=== PATIENT | male | born 1965 | race Caucasian/White ===

== ENCOUNTER 2017-02-21 13:45 | Emergency (ER) | payer OTHER ==
[~2017-02-21] VITALS: Ht 182.9 cm; Wt 65.0 kg
[~2017-02-21 13:45] MED LIST: AUGM875T PO; HYDR-3533 PO
[2017-02-21 13:46] VITALS: BP 185/94; PULSE 75; RESP 15; TEMP 98.2; O2SAT 100
--- NOTE | 2017-02-21 14:13 | PD ---
HPI Chief Complaint: Pain: Acute or Chronic Time Seen by Provider: 14:13 Travel History International Travel<30 days: No Contact w/Intl Traveler<30days: No Traveled to known affect area: No History of Present Illness HPI 51-year-old male presents emergency Department with complaint of swelling and pain to the tip of his left fifth finger 4-5 days. Denies paresthesias, loss of sensation, decreased range of motion to the affected finger. Denies fever, chills, nausea, vomiting. Has been taking Tylenol for the pain with some relief. No known allergies. No other medical complaints. No other modifying factors or associated signs and symptoms. PFSH Past Medical History Heart Rhythm Problems: No Cardiac Catheterization: No Cardiovascular Problems: Yes High Cholesterol: No Congestive Heart Failure: No Diabetes: No Hypertension: Yes Past Surgical History Coronary Artery Bypass Graft: No Thoracic Surgery: Yes (PARTIAL RIGHT LOBECTOMY) Other Surgery: Yes (RIGHT LUNG VIRAL INFECTION WITH PARTIAL LOBECTOMY AT 19 YO) Social History Alcohol Use: No Tobacco Use: Yes (1 PPD. STOPPED 5 DAYS AGO. ) Substance Use: No Allergies-Medications (Allergen,Severity, Reaction): Coded Allergies: No Known Allergies (Verified , 08/11/14) Reported Meds & Prescriptions Reported Meds & Active Scripts Active Ibuprofen 800 Mg Tab 800 Mg PO Q6HR PRN Bactrim DS (Sulfamethoxazole-Trimethoprim) 800-160 Mg Tab 1 Tab PO BID 10 Days Keflex (Cephalexin) 500 Mg Cap 500 Mg PO Q6H 10 Days Review of Systems Except as stated in HPI: all other systems reviewed are Neg Physical Exam Narrative GENERAL: Well-nourished, well-developed patient, in no acute distress SKIN: There is an indurated area to the distal aspect of the left fifth digit consistent with a paronychia. It is fluctuant but there is no pointing or drainage. There is a zone of inflammation around it but no lymphangitis. The finger is with full range of motion and sensory intact; less than 3 second cap refill. HEAD: Atraumatic. Normocephalic. EYES: Pupils equal and round. No scleral icterus. No injection or drainage. ENT: Mucosa pink and moist. Airway patent. NECK: Trachea midline. CARDIOVASCULAR: Regular rate. RESPIRATORY: No accessory muscle use. GASTROINTESTINAL: Flat. MUSCULOSKELETAL: No obvious deformities. No clubbing. No cyanosis. No edema. NEUROLOGICAL: Awake and alert. Oriented 3. No obvious cranial nerve deficits. Motor grossly within normal limits. Normal speech. PSYCHIATRIC: Appropriate mood and affect; insight and judgment normal. Data Data Last Documented VS Vital Signs Date Time Temp Pulse Resp B/P Pulse Ox O2 Delivery O2 Flow Rate FiO2 02/21/17 13:46 98.2 75 15 185/94 100 Orders Wound Culture And Gram Stain (02/21/17 14:13) Tetanus/Diphtheria Tox Adult (Tetanus/Di (02/21/17 14:15) Bupivacaine Pf 0.5% Inj (Marcaine Pf 0.5 (02/21/17 14:15) Lidocaine 1% Inj (50 Ml) (Xylocaine 1% I (02/21/17 14:15) MDM Medical Decision Making Medical Screen Exam Complete: Yes Emergency Medical Condition: Yes Medical Record Reviewed: Yes Differential Diagnosis Paronychia, ingrown nail, less likely fell and Narrative Course 51-year-old male physical exam consistent with paronychia to the left fifth finger. Tetanus updated in the ER. The mother procedure note for incision and drainage of the paronychia. Wound cultures pending. Keflex, Bactrim, ibuprofen prescribed for home. Patient verbalizes understanding and agreement with treatment plan. Patient is medically cleared and stable for discharge. Discussed reasons to return to the emergency department. Instructed patient to follow up with primary care provider. Patient agrees with treatment plan. The patients vital signs are stable and the patient is stable for outpatient follow- up and treatment. Patient discharged home, stable and in no acute distress. Procedures Procedure Narrative INCISION AND DRAINAGE OF ABSCESS: The area was prepped and was sterilely draped. The left fifth finger was digitally blocked with 0.5% bupivacaine and 1 % lidocaine. The area was properly anesthetized. A number 11 scalpel was used to make a less than 0.5-cm incision across the area of the abscess. Cultures were obtained. The abscess was drained an irrigated with normal saline. Sterile dressing applied. Diagnosis Primary Impression: Paronychia of finger of left hand Referrals: Primary Care Physician Patient Instructions: General Instructions, Paronychia (ED) Departure Forms: Tests/Procedures, Work Release Enter return to work date: Feb 22, 2017 Additional Instructions: Complete full course of antibiotics Warm compresses to the affected area; warm water Epson salt soaks Keep area clean and dry Ibuprofen or Tylenol as directed and as needed for pain and inflammation Follow-up with primary care provider Return to emergency department immediately with worsening of symptoms Med/Other Pt SpecificInfo: Prescription(s) given Scripts Ibuprofen 800 Mg Zao023 Mg PO Q6HR PRN (PAIN) #30 TAB Ref 0 Prov:Amrita Friend 02/21/17 Sulfamethoxazole-Trimethoprim (Bactrim DS)800-160 Mg Tab1 Tab PO BID 10 Days Ref 0 Prov:Amrita Friend 02/21/17 Cephalexin (Keflex)500 Mg Euc113 Mg PO Q6H 10 Days Ref 0 Prov:Amrita Friend 02/21/17 Disposition: 01 DISCHARGE HOME Condition: Stable Amrita Friend Feb 21, 2017 14:13
[2017-02-21] MEDS ORDERED: BUPIVACAINE HCL PF 0.5% 10 ML VIAL INFIL ONE (14:15)
[2017-02-21] MEDS ORDERED: TETANUS/DIPHTHERIA TOXOID ADULT 0.5 ML VIAL IM ONE (14:15)
[2017-02-21] MEDS ORDERED: LIDOCAINE HCL 1% 50 ML VIAL INFIL ONE (14:15)
[2017-02-21] MEDS ORDERED: BACT800T5 PO (14:16)
[2017-02-21] MEDS ORDERED: IBUP800T23 PO (14:16)
[2017-02-21] MEDS ORDERED: CEPH-460 PO (14:16)
== END 2017-02-21 16:37 | disposition home or self-care (01) ==
LOC: NEPK 13:45
DX: L03.012 Cellulitis of left finger (principal); B95.62 Methicillin resistant Staphylococcus aureus infection as the cause of diseases classified elsewhere
CPT/HCPCS: 10060; 86403; 87070; 87186; 87205; 90471; 90714